=== PATIENT | female | born 1935 | race Caucasian/White ===

== ENCOUNTER 2022-10-11 10:41 | Emergency (ER) | payer OTHER, MEDICARE, BC ==
[2022-10-11 11:57] LABS: Bilirubin Neg (Negative); Blood, Urine Negative (Negative); Glucose, Urine (Dipstick) Normal (Negative); Ketone, Urine Negative (Negative); Leukocyte 25 (Negative); Nitrite Negative (Negative); Protein, Urine (Dipstick) 15 mg/dl (Neg-Trace); Specific Gravity, Urine 1.005 (1.005-1.030); Urobilinogen Normal mg/dL (Less than 2)
[2022-10-11 11:58] LABS: Clarity Clear (Clear)
[2022-10-11 12:15] LABS: Bacteria/HPF None Seen HPF (None Seen); RBC/HPF None Seen HPF (0-3); Squamous Epithelial None Seen HPF (0-3); WBC/HPF 0-3 HPF (0-3)
[2022-10-11 12:28] LABS: #Basophils 0.1 10x3/uL (0.0-0.2); #Eosinphils 0.1 10x3/uL (0.0-0.5); #Monocytes 0.8 10x3/uL (0.0-1.1); #Neutrophils 7.6 10x3/uL (1.5-8.4); %Basophils 0.5 % (0.0-2.0); %Eosinophils 0.5 % (0.0-6.0); %Lymphocytes 22.1 % (18.0-47.0); %Neutrophils 69.6 % (40.0-75.0); Hemoglobin 11.2 g/dL (12.0-15.5); Mean Corpuscular HGB CONC 32.7 g/dL (32.0-36.0); Mean Corpuscular Hemoglobin 29.4 pg (27.0-33.0); Mean Corpuscular Volume 89.8 fl (81.6-98.3); Mean Platelet Volume 10.2 fl (7.4-10.4); Platelet Count 390 10x3/uL (150-450); RBC Distribution Width 12.4 % (11.5-14.5); Red Blood Cell (RBC) Count 3.81 10x6/uL (3.90-5.03)
[2022-10-11 12:46] LABS: ALT (SGPT) 9 U/L (8-55); AST (SGOT) 17 U/L (5-34); Albumin 4.4 g/dL (3.4-4.8); Alkaline Phosphatase 69 U/L (40-110); Anion Gap 16 mmol/L (10-20); BUN (Urea Nitrogen) 20 mg/dL (9.8-20.1); Bilirubin, Total 0.2 mg/dL (0.2-1.2); Calc. Creatinine Clearance 0 mL/min (70-130); Calcium 10.1 mg/dL (7.8-10.44); Carbon Dioxide 27 mmol/L (23-31); Chloride 98 mmol/L (98-107); Estimated GFR 62; Globulin 3.3 g/dL (2.4-3.5); Glucose 133 mg/dL (83-110); Magnesium 1.6 mg/dL (1.6-2.6); Protein, Total 7.7 g/dL (5.8-8.1); Sodium 137 mmol/L (136-145)
== END 2022-10-11 13:08 | disposition home or self-care (01) ==
LOC: CSHERS 10:41
DX: T14.8XXA Other injury of unspecified body region, initial encounter (principal); E11.9 Type 2 diabetes mellitus without complications; E78.5 Hyperlipidemia, unspecified; I10 Essential (primary) hypertension; V89.2XXA Person injured in unspecified motor-vehicle accident, traffic, initial encounter
CPT/HCPCS: 36415; 70450; 80053; 81003; 81015; 83735; 84443; 85025

== ENCOUNTER 2023-11-09 08:59 | Emergency (ER) | payer MEDICARE, BC | END 2023-11-09 12:20 | disposition home or self-care (01) | LOC: CSHERS 08:59 | DX: M79.661 Pain in right lower leg (principal); M54.30 Sciatica, unspecified side; E11.9 Type 2 diabetes mellitus without complications; I10 Essential (primary) hypertension ==

== ENCOUNTER 2023-11-10 14:12 | Emergency (ER) | payer BC, MEDICARE ==
[2023-11-10] MEDS ORDERED: traMADol HCl 50 MG TAB ONE (15:10)
[2023-11-10] MEDS ORDERED: Lidocaine 4% Patch TD SCH (15:30)
== END 2023-11-10 16:10 | disposition home or self-care (01) ==
LOC: CSHERS 14:12
DX: M54.31 Sciatica, right side (principal); E11.9 Type 2 diabetes mellitus without complications; I10 Essential (primary) hypertension
CPT/HCPCS: 99283

== ENCOUNTER 2025-06-24 12:43 | Outpatient (CLI) | payer MEDICARE ==
[~2025-06-24 12:43] MED LIST: Iopamidol 300 61% 100 ML VIAL FS ONE
[2025-06-27 09:50] LABS: Estimated GFR - POC 55.0
== END 2025-06-24 12:44 | disposition home or self-care (01) ==
LOC: CSHCT 12:43
PROVIDERS: ATTEND Internal Medicine Gastroenterology
DX: K59.00 Constipation, unspecified (principal); R10.32 Left lower quadrant pain
CPT/HCPCS: 74177; 82565; Q9967

== ENCOUNTER 2025-07-12 12:52 | Outpatient (CLI) | payer MEDICARE | END 2025-07-12 12:53 | disposition home or self-care (01) | LOC: CSHCT 12:52 | PROVIDERS: ATTEND Internal Medicine Gastroenterology | DX: N28.89 Other specified disorders of kidney and ureter (principal); N28.1 Cyst of kidney, acquired; K57.30 Diverticulosis of large intestine without perforation or abscess without bleeding | CPT/HCPCS: 74150 ==